=== PATIENT | female | born 1960 | race Caucasian/White ===

== ENCOUNTER → 2017-01-13 | Outpatient (CLI) | payer OTHER | LOC: WI 10:50 | PROVIDERS: ATTEND Family Medicine | DX: Z12.31 Encounter for screening mammogram for malignant neoplasm of breast (principal) | CPT/HCPCS: 77067; G0202 ==

== ENCOUNTER → 2017-03-11 | Outpatient (CLI) | payer OTHER ==
--- NOTE | 2017-03-11 09:16 | RADIOLOGY REPORT (SQ) ---
EXAM DESCRIPTION: SHOULDER LEFT 2 OR MORE VIEWS COMPLETED DATE/TIME: 03/11/2017 8:42 am REASON FOR STUDY: PAIN IN LEFT SHOULDER M25.512 PAIN IN LEFT SHOULDER COMPARISON: None. NUMBER OF VIEWS: Three views. TECHNIQUE: Internal rotation, external rotation, and Y view images acquired of the left shoulder. LIMITATIONS: None. FINDINGS: MINERALIZATION: Osteopenia BONES: No acute fracture or dislocation. No worrisome bone lesions. JOINTS: No glenohumeral joint dislocation. There is acromioclavicular joint bony spurring without AC joint separation. VISUALIZED LUNGS AND RIBS: Left upper lobe in the field of view hyperlucent from obstructive disease. Left upper ribs intact. SOFT TISSUES: No radiopaque foreign body. OTHER: No other significant finding. IMPRESSION: Acromioclavicular joint bony spurring. No acute fracture or malalignment. TECHNICAL DOCUMENTATION: JOB ID: [id number] [employer]- All Rights Reserved
== END ==
LOC: OD 08:13
PROVIDERS: ATTEND Family Medicine
DX: M85.812 Other specified disorders of bone density and structure, left shoulder (principal); M75.82 Other shoulder lesions, left shoulder; M25.512 Pain in left shoulder

== ENCOUNTER 2017-09-12 10:50 | Emergency (ER) | payer OTHER ==
--- NOTE | 2017-09-12 11:45 | EKG REPORT ---
SEVERITY:- BORDERLINE ECG - SINUS RHYTHM PROBABLE LEFT ATRIAL ABNORMALITY : Confirmed by: Aaron Ortiz 12-Sep-2017 11:45:21
[2017-09-12] MEDS ORDERED: ASPIRIN 81 MG TABLET, CHEWABLE PO ONE (11:48)
[2017-09-12 12:07] LABS: ABSOLUTE EOSINOPHILS # (AUTO) 0.2 10^3/uL (0.0-0.6); ABSOLUTE LYMPHOCYTES (AUTO) 1.4 10^3/uL (0.5-4.7); ABSOLUTE MONOCYTES (AUTO) 0.3 10^3/uL (0.1-1.4); ABSOLUTE NEUT (AUTO) 4.7 10^3/uL (1.7-8.2); BASOPHILS % (AUTO) 0.3 % (0-2); HEMATOCRIT 36.8 % (36.0-47.0); HEMOGLOBIN 12.5 g/dL (12.0-15.5); HGB HCT DIFFERENCE 0.7; LYMPHOCYTES % (AUTO) 21.2 % (13-45); MEAN CORPUSCULAR HEMOGLOBIN 29.8 pg (27.0-33.4); MEAN CORPUSCULAR VOLUME 88 fl (80-97); MONOCYTES % (AUTO) 5.2 % (3-13); RED CELL DISTRIBUTION WIDTH 13.7 % (11.5-14.0); SEGMENTED NEUTROPHILS % (AUTO) 70.3 % (42-78); WHITE BLOOD COUNT 6.6 10^3/uL (4.0-10.5)
[2017-09-12] MEDS ORDERED: ONDANSETRON HCL INJ/PF 4 MG/2 ML SDV IV ONE (12:19)
[2017-09-12] MEDS ORDERED: NORMAL SALINE 1000 ML 1,000 ML IV ONE (12:19)
[2017-09-12 12:28] LABS: ALANINE AMINOTRANSFERASE 37 U/L (9-52); ALBUMIN 4.6 g/dL (3.5-5.0); ALKALINE PHOSPHATASE 62 U/L (38-126); ANION GAP 13 (5-19); ASPARTATE AMINO TRANSFERASE 23 U/L (14-36); BILIRUBIN,DIRECT 0.5 mg/dL (0.0-0.4); BILIRUBIN,TOTAL 1.4 mg/dL (0.2-1.3); BLOOD UREA NITROGEN 15 mg/dL (7-20); CALCIUM 9.6 mg/dL (8.4-10.2); CARBON DIOXIDE 29 mmol/L (22-30); CHLORIDE 100 mmol/L (98-107); CREATINE KINASE 56 U/L (30-135); CREATININE RESULT 0.59 mg/dL (0.52-1.25); GLUCOSE 158 mg/dL (75-110); POTASSIUM 4.2 mmol/L (3.6-5.0); SODIUM 141.8 mmol/L (137-145); TOTAL PROTEIN 7.2 g/dL (6.3-8.2)
[2017-09-12 12:37] LABS: CREATINE KINASE MB 0.32 ng/mL (<4.55); TROPONIN I < 0.012 ng/mL
--- NOTE | 2017-09-12 13:32 | RADIOLOGY REPORT (SQ) ---
EXAM DESCRIPTION: CHEST SINGLE VIEW COMPLETED DATE/TIME: 09/12/2017 1:08 pm REASON FOR STUDY: cp COMPARISON: Chest films 10/24/2015 EXAM PARAMETERS: NUMBER OF VIEWS: One view. TECHNIQUE: Single frontal radiographic view of the chest acquired. RADIATION DOSE: NA LIMITATIONS: None. FINDINGS: LUNGS AND PLEURA: No opacities, masses or pneumothorax. No pleural effusion. MEDIASTINUM AND HILAR STRUCTURES: No masses. Contour normal. HEART AND VASCULAR STRUCTURES: Heart normal in size. Normal vasculature. BONES: No acute findings. HARDWARE: None in the chest. OTHER: No other significant finding. IMPRESSION: NO ACUTE RADIOGRAPHIC FINDING IN THE CHEST. TECHNICAL DOCUMENTATION: JOB ID: [id number] [employer]- All Rights Reserved
--- NOTE | 2017-09-12 15:12 | ER Document Report ---
ED General - General Chief Complaint: Chest Pain Stated Complaint: HEART PALPITATIONS, NAUSEA Time Seen by Provider: 09/12/17 11:48 TRAVEL OUTSIDE OF THE [place] IN LAST 30 DAYS: No - HPI Patient complains to provider of: Palpitations nausea Notes: Patient coming in for evaluation palpitations nausea. Patient states symptoms ongoing for the last few days. Patient states sick contact patient's coworker of symptoms on her work as influenza. Patient denies any recent travel denies any recent trauma. Patient is resting comfortably upon my evaluation denies specific chest pain states that she just feels intermittent palpitations. Denies any abdominal pain. Patient states similar symptoms when she had been diagnosed with gastritis in the past. Denies any trauma. - Related Data Allergies/Adverse Reactions: No Known Allergies Allergy (Verified 09/12/17 11:48) Past Medical History - Social History Smoking Status: Never Smoker Frequency of alcohol use: Occasional Drug Abuse: None Family History: None Patient has suicidal ideation: No Patient has homicidal ideation: No - Past Medical History Cardiac Medical History: Reports: Hx Coronary Artery Disease - high chol , Hx Hypercholesterolemia, Hx Hypertension Denies: Hx Heart Attack Pulmonary Medical History: Reports: Hx Asthma - albuterol - years ago Denies: Hx Bronchitis, Hx COPD, Hx Pneumonia Neurological Medical History: Denies: Hx Cerebrovascular Accident, Hx Seizures Endocrine Medical History: Reports: Hx Diabetes Mellitus Type 2 Renal/ Medical History: Denies: Hx Peritoneal Dialysis Musculoskeltal Medical History: Denies Hx Arthritis Psychiatric Medical History: Denies: Hx Depression Past Surgical History: Reports: Hx Hysterectomy - Immunizations Immunizations up to date: Yes Hx Diphtheria, Pertussis, Tetanus Vaccination: No - unknown Review of Systems - Review of Systems Constitutional: No symptoms reported EENT: No symptoms reported Cardiovascular: Palpitations Respiratory: No symptoms reported Gastrointestinal: Nausea, Vomiting Genitourinary: No symptoms reported Female Genitourinary: No symptoms reported Musculoskeletal: No symptoms reported Skin: No symptoms reported Hematologic/Lymphatic: No symptoms reported Neurological/Psychological: No symptoms reported -: Yes All other systems reviewed and negative Physical Exam - Vital signs Vitals: Temp Pulse Resp BP Pulse Ox 98.5 F 87 18 135/71 H 98 09/12/17 11:06 09/12/17 11:06 09/12/17 11:06 09/12/17 11:06 09/12/17 11:06 Interpretation: Normal - General General appearance: Appears well, Alert - HEENT Head: Normocephalic, Atraumatic Eyes: Normal Pupils: PERRL - Respiratory Respiratory status: No respiratory distress Chest status: Nontender Breath sounds: Normal Chest palpation: Normal - Cardiovascular Rhythm: Regular Heart sounds: Normal auscultation Murmur: No - Abdominal Inspection: Normal Distension: No distension Bowel sounds: Normal Tenderness: Nontender Organomegaly: No organomegaly - Back Back: Normal, Nontender - Extremities General upper extremity: Normal inspection, Nontender, Normal color, Normal ROM , Normal temperature General lower extremity: Normal inspection, Nontender, Normal color, Normal ROM , Normal temperature, Normal weight bearing. No: Richmond's sign - Neurological Neuro grossly intact: Yes Cognition: Normal Orientation: AAOx4 Anca Coma Scale Eye Opening: Spontaneous [place] Coma Scale Verbal: Oriented Anca Coma Scale Motor: Obeys Commands Anca Coma Scale Total: 15 Speech: Normal Motor strength normal: LUE, RUE, LLE, RLE Sensory: Normal - Psychological Associated symptoms: Normal affect, Normal mood - Skin Skin Temperature: Warm Skin Moisture: Dry Skin Color: Normal Course - Re-evaluation Re-evalutation: 09/12/17 15:40 The patient has palpitations as the patient's chest pain is not suggestive of pulmonary embolus, cardiac ischemia, aortic dissection, or other serious etiology. Given the extremely low risk of these diagnoses further testing and evaluation for these possibilities does not appear to be indicated at this time. The patient has been instructed to return if the symptoms worsen or change in any way. The patient presents with nausea without signs of peritonitis or other life-threatening or serious etiology. The patient appears stable for discharge and has been instructed to return immediately if the symptoms worsen in any way, or in 8-12hr if not improved for re-evaluation. The patient has been instructed to return if the symptoms worsen or change in any way. Patient with a few PVCs during her stay here no signs of any overt arrhythmias. Laboratory studies not showing signs of cardiac ischemia or any other critical issues. Patient will be discharged on follow-up primary care physician - Vital Signs Vital signs: Temp Pulse Resp BP Pulse Ox 98.5 F 76 14 134/68 H 97 09/12/17 11:06 09/12/17 12:04 09/12/17 15:00 09/12/17 15:00 09/12/17 15:00 - Laboratory Result Diagrams: 09/12/17 11:25 09/12/17 11:25 Laboratory results interpreted by me: 09/12/17 11:25 Glucose 158 H Total Bilirubin 1.4 H Direct Bilirubin 0.5 H Discharge - Discharge Clinical Impression: Palpitation Nausea & vomiting Qualifiers: Vomiting type: unspecified Vomiting Intractability: unspecified Qualified Code( s): R11.2 - Nausea with vomiting, unspecified Condition: Good Disposition: HOME, SELF-CARE Instructions: Nausea or Vomiting, Nonspecific ([facility]), Orthostatic Hypotension ( [facility]), Palpitations (Irregular or Rapid Heartrate) ([facility]), PVCs ([facility]) Additional Instructions: Your evaluation today reveals that you have orthostasis or that you have slight dehydration causing change in her vital signs whenever he goes from lying sitting and standing. Please drink more water to stay hydrated. Return to ER if symptoms worsen. You do have any occasional PVC which is a benign extra contraction of the bottom part of your heart. I do not see any signs of infection cardiac ischemia or significant pathology. Take nausea medication as prescribed return to ER symptoms worsen. Prescriptions: Ondansetron [Zofran Odt 4 mg Tablet] 1 tab PO Q4H PRN #20 tab.rapdis PRN Reason: For Nausea/Vomiting Prochlorperazine Maleate [Compazine] 5 mg PO Q6 #20 tablet Referrals: KELLY HOPPER DO [Primary Care Provider] - Follow up as needed
[2017-09-12 15:54] VITALS: BP 129/76
== END 2017-09-12 15:39 | disposition home or self-care (01) ==
LOC: ER 10:50
DX: R00.2 Palpitations (principal); R11.0 Nausea; R07.9 Chest pain, unspecified
CPT/HCPCS: 93005; 99285; 96361; 96374; 36415; 82553; 82550; 85025; 80053; 84484; 71010; 93010; J2405; J7030

== ENCOUNTER → 2017-10-07 | Outpatient (CLI) | payer OTHER ==
[2017-10-07 09:23] LABS: HEMATOCRIT 36.1 % (36.0-47.0); HEMOGLOBIN 12.1 g/dL (12.0-15.5); MEAN CORPUSCULAR HEMOGLOBIN 29.1 pg (27.0-33.4); MEAN CORPUSCULAR HGB CONC 33.4 g/dL (32.0-36.0); MEAN CORPUSCULAR VOLUME 87 fl (80-97); PLATELET COUNT 304 10^3/uL (150-450); RED BLOOD COUNT 4.14 10^6/uL (3.72-5.28); RED CELL DISTRIBUTION WIDTH 13.7 % (11.5-14.0); WHITE BLOOD COUNT 6.7 10^3/uL (4.0-10.5)
[2017-10-07 09:46] LABS: ALANINE AMINOTRANSFERASE 30 U/L (9-52); ALBUMIN 4.6 g/dL (3.5-5.0); ALKALINE PHOSPHATASE 59 U/L (38-126); ANION GAP 12 (5-19); ASPARTATE AMINO TRANSFERASE 20 U/L (14-36); BILIRUBIN,DIRECT 0.3 mg/dL (0.0-0.4); BILIRUBIN,TOTAL 1.1 mg/dL (0.2-1.3); BLOOD UREA NITROGEN 14 mg/dL (7-20); CALCIUM 10.4 mg/dL (8.4-10.2); CARBON DIOXIDE 30 mmol/L (22-30); CHLORIDE 102 mmol/L (98-107); CHOLESTEROL 153.56 mg/dL (0-200); GLUCOSE 117 mg/dL (75-110); MAGNESIUM 1.6 mg/dL (1.6-2.3); POTASSIUM 4.9 mmol/L (3.6-5.0); SODIUM 143.7 mmol/L (137-145); TOTAL PROTEIN 6.9 g/dL (6.3-8.2); TRIGLYCERIDES 68 mg/dL (<150)
[2017-10-07 09:57] LABS: DIRECT LDL 61 mg/dL (<100)
== END ==
LOC: OD 08:05
PROVIDERS: ATTEND Internal Medicine Cardiovascular Disease
DX: E11.9 Type 2 diabetes mellitus without complications (principal); R00.2 Palpitations; E78.00 Pure hypercholesterolemia, unspecified; Z79.899 Other long term (current) drug therapy
CPT/HCPCS: 36415; 80048; 80061; 80076; 83036; 83735; 84443; 85027

== ENCOUNTER 2017-12-16 08:57 | Observation (INO) | payer OTHER ==
--- NOTE | 2017-12-16 09:10 | EKG REPORT ---
SEVERITY:- NORMAL ECG - SINUS RHYTHM : Confirmed by: Aaron Ortiz 16-Dec-2017 09:09:52
[2017-12-16] MEDS ORDERED: ASPIRIN 81 MG TABLET, CHEWABLE PO ONE ×2 (09:15→09:22)
--- NOTE | 2017-12-16 09:25 | ER Document Report ---
ED Medical Screen (RME) - General Chief Complaint: Chest Pain Stated Complaint: CHEST PAIN Time Seen by Provider: 12/16/17 09:14 Mode of Arrival: Ambulatory Information source: Patient Notes: 57 yr old female hx htn, hypercholesterolemia, diabetes, presents with twinging pain on the left side yesterday and now pain on the left chest. 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 A comprehensive ED assessment and evaluation of the patient, analysis of test results and completion of the medical decision making process will be conducted by additional ED providers. PHYSICAL EXAMINATION: GENERAL: Well-appearing, well-nourished and in no acute distress. HEAD: Atraumatic, normocephalic. EYES: Pupils equal round extraocular movements intact, conjunctiva are normal. ENT: Nares patent NECK: Normal range of motion LUNGS: No respiratory distress Musculoskeletal: Normal range of motion NEUROLOGICAL: Normal speech, normal gait. PSYCH: Normal mood, normal affect. SKIN: Warm, Dry, normal turgor, no rashes or lesions noted. TRAVEL OUTSIDE OF THE [place] IN LAST 30 DAYS: No - Related Data Allergies/Adverse Reactions: No Known Allergies Allergy (Verified 09/12/17 11:48) Past Medical History - Social History Chew tobacco use (# tins/day): No Frequency of alcohol use: Occasional Drug Abuse: None - Past Medical History Cardiac Medical History: Reports: Hx Coronary Artery Disease - high chol , Hx Hypercholesterolemia, Hx Hypertension Denies: Hx Heart Attack Pulmonary Medical History: Reports: Hx Asthma - albuterol - years ago Denies: Hx Bronchitis, Hx COPD, Hx Pneumonia Neurological Medical History: Denies: Hx Cerebrovascular Accident, Hx Seizures Endocrine Medical History: Reports: Hx Diabetes Mellitus Type 2 Renal/ Medical History: Denies: Hx Peritoneal Dialysis Musculoskeltal Medical History: Denies Hx Arthritis Psychiatric Medical History: Denies: Hx Depression Past Surgical History: Reports: Hx Hysterectomy - Immunizations Immunizations up to date: Yes Hx Diphtheria, Pertussis, Tetanus Vaccination: No - unknown Physical Exam - Vital signs Vitals: Temp Pulse Resp BP Pulse Ox 97.7 F 91 20 139/70 H 99 12/16/17 09:08 12/16/17 09:08 12/16/17 09:08 12/16/17 09:08 12/16/17 09:08 Course - Vital Signs Vital signs: Temp Pulse Resp BP Pulse Ox 97.7 F 91 20 139/70 H 99 12/16/17 09:08 12/16/17 09:08 12/16/17 09:10 12/16/17 09:08 12/16/17 09:08
[2017-12-16 09:37] LABS: ABSOLUTE EOSINOPHILS # (AUTO) 0.2 10^3/uL (0.0-0.6); ABSOLUTE LYMPHOCYTES (AUTO) 1.3 10^3/uL (0.5-4.7); ABSOLUTE MONOCYTES (AUTO) 0.4 10^3/uL (0.1-1.4); ABSOLUTE NEUT (AUTO) 6.6 10^3/uL (1.7-8.2); BASOPHILS % (AUTO) 0.4 % (0-2); EOSINOPHILS % (AUTO) 1.9 % (0-6); HEMATOCRIT 37.9 % (36.0-47.0); HEMOGLOBIN 12.7 g/dL (12.0-15.5); MEAN CORPUSCULAR HEMOGLOBIN 29.1 pg (27.0-33.4); MEAN CORPUSCULAR HGB CONC 33.5 g/dL (32.0-36.0); MEAN CORPUSCULAR VOLUME 87 fl (80-97); MONOCYTES % (AUTO) 4.3 % (3-13); PLATELET COUNT 278 10^3/uL (150-450); RED BLOOD COUNT 4.36 10^6/uL (3.72-5.28); SEGMENTED NEUTROPHILS % (AUTO) 78.4 % (42-78); TOTAL CELLS COUNTED % (AUTO) 100 %; WHITE BLOOD COUNT 8.4 10^3/uL (4.0-10.5)
--- NOTE | 2017-12-16 09:49 | ER Document Report ---
ED Cardiac - General Chief Complaint: Chest Pain Stated Complaint: CHEST PAIN Time Seen by Provider: 12/16/17 09:14 Mode of Arrival: Ambulatory Notes: 57-year-old female to emergency department chief complaint of chest pain. Pain is been present for about 4 months. 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 Was going to the sieve maker's office today for the chest pain and was sent here to be evaluated instead. Has had a recent treadmill stress test which was unremarkable. Labs unremarkable. EKG showed PVCs. States the chest pain came back yesterday on the left side of her chest felt like sharp pins and then developed some pain in the left side of her back with some nausea. Currently does not have any pain. Here recently she has had some shortness of breath. TRAVEL OUTSIDE OF THE [place] IN LAST 30 DAYS: No - HPI Patient complains to provider of: Chest pain Use of: denies: Alcohol, Amphetamines, Bath salts, Caffeine, Cocaine, Decongestants, Other Was the onset of pain: Gradual Quality of pain: Intermittent, Sharp Chest pain radiation location: Back Severity now: None Severity at worst: Mild Pain level currently: 0 Cardiac risk factors: None Associated symptoms: Nausea/vomiting - Related Data Allergies/Adverse Reactions: No Known Allergies Allergy (Verified 09/12/17 11:48) Past Medical History - General Information source: Patient - Social History Smoking Status: Former Smoker Cigarette use (# per day): No Chew tobacco use (# tins/day): No Frequency of alcohol use: Occasional Drug Abuse: None Lives with: Family Family History: None Patient has suicidal ideation: No Patient has homicidal ideation: No - Past Medical History Cardiac Medical History: Reports: Hx Coronary Artery Disease - high chol , Hx Hypercholesterolemia, Hx Hypertension Denies: Hx Heart Attack Pulmonary Medical History: Reports: Hx Asthma - albuterol - years ago Denies: Hx Bronchitis, Hx COPD, Hx Pneumonia Neurological Medical History: Denies: Hx Cerebrovascular Accident, Hx Seizures Endocrine Medical History: Reports: Hx Diabetes Mellitus Type 2 Renal/ Medical History: Denies: Hx Peritoneal Dialysis Musculoskeltal Medical History: Denies Hx Arthritis Psychiatric Medical History: Denies: Hx Depression Past Surgical History: Reports: Hx Hysterectomy - Immunizations Immunizations up to date: Yes Hx Diphtheria, Pertussis, Tetanus Vaccination: No - unknown Review of Systems - Review of Systems Constitutional: No symptoms reported. denies: Fever, Malaise, Weakness EENT: No symptoms reported. denies: Double vision, Nose pain, Difficulty swallowing, Mouth swelling, Vertigo Cardiovascular: No symptoms reported, Chest pain, Palpitations, Dyspnea. denies : Heart racing, Orthopnea, Dizziness, Lightheaded, Edema Respiratory: No symptoms reported, Short of breath. denies: Cough, Hurts to breathe, Wheezing Gastrointestinal: No symptoms reported, Nausea. denies: Abdominal pain, Diarrhea, Vomiting Genitourinary: No symptoms reported. denies: Dysuria, Discharge, Hematuria, Urgency Female Genitourinary: No symptoms reported Musculoskeletal: No symptoms reported, See HPI, Back pain. denies: Joint pain, Muscle stiffness, Neck pain, Deformity Skin: No symptoms reported. denies: Dryness, Lesions, Rash Hematologic/Lymphatic: No symptoms reported. denies: Anemia, Blood clots, Easy bleeding, Easy bruising Neurological/Psychological: No symptoms reported. denies: Depression, Weakness , Numbness Physical Exam - Vital signs Vitals: Temp Pulse Resp BP Pulse Ox 97.7 F 91 20 139/70 H 99 12/16/17 09:08 12/16/17 09:08 12/16/17 09:08 12/16/17 09:08 12/16/17 09:08 Interpretation: Normal - General General appearance: Appears well, Alert - HEENT Head: Normocephalic, Atraumatic Eyes: Normal Pupils: PERRL - Respiratory Respiratory status: No respiratory distress Chest status: Nontender Breath sounds: Normal Chest palpation: Normal - Cardiovascular Rhythm: Regular Heart sounds: Normal auscultation Murmur: No - Abdominal Inspection: Normal Distension: No distension Bowel sounds: Normal Tenderness: Nontender Organomegaly: No organomegaly - Back Back: Normal, Nontender - Extremities General upper extremity: Normal inspection, Nontender, Normal color, Normal ROM , Normal temperature General lower extremity: Normal inspection, Nontender, Normal color, Normal ROM , Normal temperature, Normal weight bearing. No: Richmond's sign - Neurological Neuro grossly intact: Yes Cognition: Normal Orientation: AAOx4 Anca Coma Scale Eye Opening: Spontaneous [place] Coma Scale Verbal: Oriented [place] Coma Scale Motor: Obeys Commands [place] Coma Scale Total: 15 Speech: Normal Motor strength normal: LUE, RUE, LLE, RLE Sensory: Normal - Psychological Associated symptoms: Normal affect, Normal mood - Skin Skin Temperature: Warm Skin Moisture: Dry Skin Color: Normal Course - Re-evaluation Re-evalutation: 12/16/17 13:06 First set of labs, chest x-ray, CT scan unremarkable. Uncomfortable discharging patient who is 57-year-old female with reportedly abnormal treadmill stress test. Consulted hospitalist. Will admit at this time . 12/16/17 13:07 - Vital Signs Vital signs: Temp Pulse Resp BP Pulse Ox 97.7 F 91 15 127/68 H 99 12/16/17 09:08 12/16/17 09:08 12/16/17 13:01 12/16/17 13:01 12/16/17 13:01 - Laboratory Result Diagrams: 12/16/17 09:24 12/16/17 09:24 Laboratory results interpreted by me: 12/16/17 12/16/17 09:24 09:24 Seg Neutrophils % 78.4 H Glucose 215 H Calcium 10.3 H - EKG Interpretation by Me EKG shows normal: Sinus rhythm, [place], Intervals, QRS Complexes, ST-T Waves Discharge - Discharge Clinical Impression: Chest pain Qualifiers: Chest pain type: unspecified Qualified Code(s): R07.9 - Chest pain, unspecified Condition: Good Disposition: ADMITTED OBSERVATION Admitting Provider: Hospitalist [facility] Admitted: Telemetry Referrals: KELLY HOPPER DO [Primary Care Provider] - Follow up as needed
--- NOTE | 2017-12-16 09:58 | RADIOLOGY REPORT (SQ) ---
EXAM DESCRIPTION: CHEST SINGLE VIEW COMPLETED DATE/TIME: 12/16/2017 9:50 am REASON FOR STUDY: chest pain COMPARISON: 10/24/2015 EXAM PARAMETERS: NUMBER OF VIEWS: One view. TECHNIQUE: Single frontal radiographic view of the chest acquired. RADIATION DOSE: NA LIMITATIONS: None. FINDINGS: LUNGS AND PLEURA: No opacities, masses or pneumothorax. No pleural effusion. MEDIASTINUM AND HILAR STRUCTURES: No masses. Contour normal. HEART AND VASCULAR STRUCTURES: Heart normal in size. Normal vasculature. BONES: No acute findings. HARDWARE: None in the chest. OTHER: No other significant finding. IMPRESSION: NO ACUTE RADIOGRAPHIC FINDING IN THE CHEST. TECHNICAL DOCUMENTATION: JOB ID: [id number] [employer]- All Rights Reserved Reading location - IP/workstation name: [email or web address]
[2017-12-16 09:59] LABS: ALANINE AMINOTRANSFERASE 30 U/L (9-52); ALBUMIN 4.6 g/dL (3.5-5.0); ALKALINE PHOSPHATASE 75 U/L (38-126); ANION GAP 17 (5-19); ASPARTATE AMINO TRANSFERASE 19 U/L (14-36); BILIRUBIN,DIRECT 0.2 mg/dL (0.0-0.4); BILIRUBIN,TOTAL 1.3 mg/dL (0.2-1.3); BLOOD UREA NITROGEN 14 mg/dL (7-20); CALCIUM 10.3 mg/dL (8.4-10.2); CARBON DIOXIDE 27 mmol/L (22-30); CHLORIDE 99 mmol/L (98-107); CREATINE KINASE 43 U/L (30-135); GLUCOSE 215 mg/dL (75-110); POTASSIUM 4.2 mmol/L (3.6-5.0)
[2017-12-16 10:15] LABS: CREATINE KINASE MB < 0.22 ng/mL (<4.55); TROPONIN I < 0.012 ng/mL
[2017-12-16] MEDS ORDERED: DIPHENHYDRAMINE HCL 50 MG/ML VIAL IV ONE (10:16)
--- NOTE | 2017-12-16 11:12 | RADIOLOGY REPORT (SQ) ---
EXAM DESCRIPTION: CTA CHEST COMPLETED DATE/TIME: 12/16/2017 10:49 am REASON FOR STUDY: cp, sob, COMPARISON: Chest x-ray 12/16/2017 TECHNIQUE: CT scan of the chest performed using helical scanning technique with dynamic intravenous contrast injection. Images reviewed with lung, soft tissue and bone windows. Reconstructed coronal and sagittal MPR images reviewed. Additional 3 dimensional post-processing performed to develop Maximal Intensity Projection images (NH P). All images stored on PACS. All CT scanners at this facility use dose modulation, iterative reconstruction, and/or weight based d osing when appropriate to reduce radiation dose to as low as reasonably achievable (ALARA). [facility]: Dose Right [facility]: CareDose [facility]: Dose Right [facility]: Teradose 4D [facility]: Histogenics CONTRAST TYPE AND DOSE: contrast/concentration: Isovue 370.00 mg/ml; Total Contrast Delivered: 77.0 ml; Total Saline Delivered: 80.0 ml Contrast bolus optimized for the pulmonary arteries. Not diagnostic for the aorta. RENAL FUNCTION: BUN 14 creatinine 0.6 RADIATION DOSE: CT Rad equipment meets quality standard of care and radiation dose reduction techniq ues were employed. CTDIvol: 18.5 - 24.8 mGy. DLP: 705 mGy-cm. . LIMITATIONS: None. FINDINGS: LUNGS AND PLEURA: No masses, infiltrates, pneumothorax. No pleural effusions, calcificati ons. AORTA AND GREAT VESSELS: No aneurysm. Contrast bolus not optimized for the aorta. HEART: No pericardial effusion. No significant coronary artery calcifications. PULMONARY ARTERIES: No emboli visualized in the main pulmonary arteries or the segmental branches. HILAR AND MEDIASTINAL STRUCTURES: No identified masses or abnormal nodes. HARDWARE: None in the chest. UPPER ABDOMEN: No significant findings. Limited exam. THYROID AND OTHER SOFT TISSUES: No masses. No adenopathy. BONES: No acute or significant finding. 3D MIPS: Confirm above findings. OTHER: No other significant finding. IMPRESSION: NORMAL CTA OF THE CHEST. NO PULMONARY EMBOLI. COMMENT: Quality ID # [id number]: Final reports with documentation of one or more dose reduction techniques (e.g., Automated exposure control, adjustment of the mA and/or kV according to patient size, use of iterative reconstruction technique) TECHNICAL DOCUMENTATION: JOB ID: [id number] [employer]- All Rights Reserved Reading location - IP/workstation name: [email or web address]
[2017-12-16] MEDS ORDERED: NITROGLYCERIN 0.4 MG/TAB 25 TAB/BOTTLE SL PRN (13:16)
[2017-12-16] MEDS ORDERED: DEXTROSE 40% GEL 15 GM TUBE PO PRN ×2 (13:16)
[2017-12-16] MEDS ORDERED: GLUCAGON,HUMAN RECOMB 1 MG INJ IM PRN (13:16)
[2017-12-16] MEDS ORDERED: INSULIN LISPRO 100 UNIT/ML 3 ML VIAL SUBCUT PRN (13:16)
[2017-12-16] MEDS ORDERED: DEXTROSE 50%-WATER 25 GM/50 ML DISP.SYRIN IV PRN ×2 (13:16)
[2017-12-16] MEDS ORDERED: SUCRALFATE 1 GM TABLET PO ONE (14:00)
[2017-12-16] MEDS ORDERED: LACTULOSE SYRUP 20 GM/30 ML UDCUP PO ONE (14:00)
[2017-12-16] MEDS ORDERED: FAMOTIDINE 20 MG TABLET PO ONE (14:00)
[2017-12-16 14:02] LABS: CREATINE KINASE MB < 0.22 ng/mL (<4.55); TROPONIN I < 0.012 ng/mL
[2017-12-16] MEDS: HEPARIN SOD (PORCINE) 5,000 UNIT/ML 1 ML SYRINGE SUBCUT SCH ×2 (15:08→21:23)
--- NOTE | 2017-12-16 16:00 | PDOC H&P ---
History of Present Illness Admission Date/PCP: 12/16/17 13:48 KELLY HOPPER DO Patient complains of: Chest pain History of Present Illness: ZEKE ANTONIO is a 57 year old female with a past medical history of diabetes, hypertension and dyslipidemia. 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 Pain is 2 out of 5 intensity nonradiating, waxing and waning without alleviating or exacerbating factors she is referred to the hospital emergency room for evaluation. Her initial workup is unremarkable including EKG and CTA of the chest she is referred to the hospitalist for evaluation. Patient denies new medications. She admits previous episodes which prompted her scheduled stress testing. Past Medical History Cardiac Medical History: Reports: Coronary Artery Disease - high chol , Hyperlipidema, Hypertension Denies: Myocardial Infarction Pulmonary Medical History: Reports: Asthma - albuterol - years ago Denies: Bronchitis, Chronic Obstructive Pulmonary Disease (COPD), Pneumonia Neurological Medical History: Denies: Seizures Endocrine Medical History: Reports: Diabetes Mellitus Type 2 Musculoskeltal Medical History: Denies: Arthritis Skin Medical History: Reports: None Psychiatric Medical History: Reports: None Denies: Depression Traumatic Medical History: Reports: None Hematology: Reports: None Denies: Anemia Infectious Medical History: Reports: None Past Surgical History Past Surgical History: Reports: Hysterectomy Social History Information Source: Patient Lives with: Family Smoking Status: Former Smoker Frequency of Alcohol Use: None Hx Recreational Drug Use: No Hx Prescription Drug Abuse: No - Advance Directive Resuscitation Status: Full Code Family History Family History: CAD, DM, Hypertension Parental Family History Reviewed: Yes Children Family History Reviewed: Yes Sibling(s) Family History Reviewed.: Yes Medication/Allergy Home Medications: Aspirin [Aspirin EC] 81 mg PO QHS 12/16/17 Atorvastatin Calcium [Lipitor 10 mg Tablet] 10 mg PO QHS 12/16/17 Liraglutide [Victoza 2-Michael] 1.2 mg SQ QHS 12/16/17 Lisinopril [Prinivil 10 mg Tablet] 10 mg PO DAILY 12/16/17 Metformin HCl [Glucophage] 1,000 mg PO BID 12/16/17 Saxagliptin HCl [Onglyza] 5 mg PO DAILY 12/16/17 Allergies/Adverse Reactions: No Known Allergies Allergy (Verified 09/12/17 11:48) Review of Systems Constitutional: ABSENT: chills, fever(s), headache(s), weight gain, weight loss Eyes: ABSENT: visual disturbances Ears: ABSENT: hearing changes Cardiovascular: ABSENT: chest pain, dyspnea on exertion, edema, orthropnea, palpitations Respiratory: ABSENT: cough, hemoptysis Gastrointestinal: PRESENT: constipation. ABSENT: abdominal pain, diarrhea, hematemesis, hematochezia, nausea, vomiting Genitourinary: ABSENT: dysuria, hematuria Musculoskeletal: ABSENT: joint swelling Integumentary: ABSENT: rash, wounds Neurological: ABSENT: abnormal gait, abnormal speech, confusion, dizziness, focal weakness, syncope Psychiatric: ABSENT: anxiety, depression, homidical ideation, suicidal ideation Endocrine: ABSENT: cold intolerance, heat intolerance, polydipsia, polyuria Hematologic/Lymphatic: ABSENT: easy bleeding, easy bruising Physical Exam Vital Signs: Temp Pulse Resp BP Pulse Ox 98.0 F 91 15 119/63 98 12/16/17 15:14 12/16/17 09:08 12/16/17 14:31 12/16/17 14:31 12/16/17 14:31 General appearance: PRESENT: no acute distress, well-developed, well-nourished Head exam: PRESENT: atraumatic, normocephalic Eye exam: PRESENT: conjunctiva pink, EOMI, PERRLA. ABSENT: scleral icterus Ear exam: PRESENT: normal external ear exam Mouth exam: PRESENT: moist, tongue midline Neck exam: ABSENT: carotid bruit, JVD, lymphadenopathy, thyromegaly Respiratory exam: PRESENT: clear to auscultation rosemary. ABSENT: rales, rhonchi, wheezes Cardiovascular exam: PRESENT: RRR. ABSENT: diastolic murmur, rubs, systolic murmur Pulses: PRESENT: normal dorsalis pedis pul Vascular exam: PRESENT: normal capillary refill GI/Abdominal exam: PRESENT: normal bowel sounds, soft. ABSENT: distended, guarding, mass, organolmegaly, rebound, tenderness Rectal exam: PRESENT: deferred Extremities exam: PRESENT: full ROM. ABSENT: calf tenderness, clubbing, pedal edema Neurological exam: PRESENT: alert, awake, oriented to person, oriented to place , oriented to time, oriented to situation, CN II-XII grossly intact. ABSENT: motor sensory deficit Psychiatric exam: PRESENT: appropriate affect, normal mood. ABSENT: homicidal ideation, suicidal ideation Skin exam: PRESENT: dry, intact, warm. ABSENT: cyanosis, rash Results Impressions: Chest X-Ray 12/16/17 09:15 IMPRESSION: NO ACUTE RADIOGRAPHIC FINDING IN THE CHEST. Chest/Abdomen CTA 12/16/17 10:07 IMPRESSION: NORMAL CTA OF THE CHEST. NO PULMONARY EMBOLI. Assessment & Plan - Diagnosis (1) Diabetes Is this a current diagnosis for this admission?: Yes Plan: Hold metformin, sliding scale Humalog insulin. Recent outpatient A1c in the mid sixes. (2) Constipation Is this a current diagnosis for this admission?: Yes Plan: Lactulose and Colace initiated. (3) Chest pain Qualifiers: Chest pain type: unspecified Qualified Code(s): R07.9 - Chest pain, unspecified Is this a current diagnosis for this admission?: Yes Plan: Atypical chest pain though the patient's pain is atypical there are multiple risk factors for coronary artery disease and subsequently will observe and evaluation of acute coronary syndrome versus coronary artery disease with anginal equivalents. Cardiac monitoring blood pressure Q6 hours ,TSH, lipid profile, serial cardiac enzymes and cardiac stress test - Time Time Spent: 30 to 50 Minutes
[2017-12-16] MEDS: DOCUSATE SODIUM 100 MG CAPSULE PO SCH (17:33)
[2017-12-16] MEDS: ATORVASTATIN CALCIUM 80 MG TABLET PO SCH (21:23)
[2017-12-16 22:39] LABS: CREATINE KINASE MB < 0.22 ng/mL (<4.55); TROPONIN I < 0.012 ng/mL
[2017-12-17] MEDS: HEPARIN SOD (PORCINE) 5,000 UNIT/ML 1 ML SYRINGE SUBCUT SCH ×3 (05:04→22:38)
[2017-12-17 05:38] LABS: CHOLESTEROL 146.67 mg/dL (0-200); CREATINE KINASE 39 U/L (30-135); TRIGLYCERIDES 156 mg/dL (<150)
[2017-12-17 05:42] LABS: CREATINE KINASE MB < 0.22 ng/mL (<4.55); TROPONIN I < 0.012 ng/mL
[2017-12-17 05:49] LABS: DIRECT LDL 55 mg/dL (<100); VLDL CHOLESTEROL 31.2 mg/dL (10-31)
[2017-12-17] MEDS ORDERED: MORPHINE SULFATE 10 MG/ML INJ IV PRN (08:56)
[2017-12-17] MEDS: DOCUSATE SODIUM 100 MG CAPSULE PO SCH ×2 (09:44→18:11)
[2017-12-17] MEDS: LISINOPRIL 10 MG TABLET PO SCH (09:44)
[2017-12-17] MEDS ORDERED: LORAZEPAM INJ 2 MG/1 ML VIAL IV PRN (10:35)
[2017-12-17] MEDS ORDERED: ALPRAZOLAM 0.5 MG TABLET PO PRN (10:44)
[2017-12-17] MEDS ORDERED: LIDOCAINE 2% VISCOUS SOLN 20 ML UDCUP PO ONE (11:30)
[2017-12-17] MEDS ORDERED: PANTOPRAZOLE SODIUM 40 MG VIAL IV ONE (11:30)
[2017-12-17] MEDS ORDERED: MAG HYDROX/AL HYDROX/SIMETH SUSP 30 ML UDCUP PO ONE (11:30)
--- NOTE | 2017-12-17 12:11 | PDOC CONSULTATION ---
Consultation Consult Date: 12/17/17 Attending physician:: MANE PEPE Consult reason:: Chest pain History of Present Illness Admission Date/PCP: 12/16/17 13:48 KELLY HOPPER DO Patient complains of: Chest pain History of Present Illness: ZEKE ANTONIO is a 57 year old female with a past medical history of diabetes, hypertension and dyslipidemia. 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 Pain is 2 out of 5 intensity nonradiating, waxing and waning without alleviating or exacerbating factors she is referred to the hospital emergency room for evaluation. Her initial workup is unremarkable including EKG and CTA of the chest she is referred to the hospitalist for evaluation. Patient denies new medications. She admits previous episodes which prompted her scheduled stress testing. Patient describes having had a stress test and echocardiogram at private maintenance superintendent office. She has been scheduled as an outpatient nuclear stress test. However because of chest pain, patient was advised to come to the hospital and was subsequently admitted. Patient denied any prior history of myocardial infarction, angina or congestive heart failure. Patient denied any history of blood clots in the legs are in the lungs. Patient denied any history of significant gastroesophageal reflux. Past Medical History Cardiac Medical History: Reports: Coronary Artery Disease, Hyperlipidema, Hypertension Denies: Myocardial Infarction Pulmonary Medical History: Reports: Asthma - albuterol - years ago Denies: Bronchitis, Chronic Obstructive Pulmonary Disease (COPD), Pneumonia Neurological Medical History: Denies: Seizures Endocrine Medical History: Reports: Diabetes Mellitus Type 2 Musculoskeltal Medical History: Denies: Arthritis Skin Medical History: Reports: None Psychiatric Medical History: Reports: None Denies: Depression Traumatic Medical History: Reports: None Hematology: Reports: None Denies: Anemia Infectious Medical History: Reports: None Past Surgical History Past Surgical History: Reports: Hysterectomy Social History Information Source: Patient Lives with: Family Smoking Status: Former Smoker Frequency of Alcohol Use: None Hx Recreational Drug Use: No Drugs: None Hx Prescription Drug Abuse: No - Advance Directive Resuscitation Status: Full Code Surrogate healthcare decision maker:: Patient's daughter is the surrogate decision-maker Family History Family History: CAD, DM, Hypertension Parental Family History Reviewed: Yes Children Family History Reviewed: Yes Sibling(s) Family History Reviewed.: Yes Medication/Allergy Home Medications: Aspirin [Aspirin EC] 81 mg PO QHS 12/16/17 Atorvastatin Calcium [Lipitor 10 mg Tablet] 10 mg PO QHS 12/16/17 Liraglutide [Victoza 2-Michael] 1.2 mg SQ QHS 12/16/17 Lisinopril [Prinivil 10 mg Tablet] 10 mg PO DAILY 12/16/17 Metformin HCl [Glucophage] 1,000 mg PO BID 12/16/17 Saxagliptin HCl [Onglyza] 5 mg PO DAILY 12/16/17 Allergies/Adverse Reactions: No Known Allergies Allergy (Verified 09/12/17 11:48) Review of Systems Review of Systems: Please see history of present illness and past medical history as wall. Constitutional: No fever or chills reported. Head : No recent chronic headaches, recent head injury. Eyes: No recent eye pain, diplopia, redness, discharge, acute visual changes. Ears: No recent chronic ear pain, acute hearing loss, ear discharge. Oral cavity: No recent ulcerations, bleeding, oral cavity discomfort. Neck: No recent acute neck pain reported. Hematologic: No recent easy bruising or bleeding or hematologic malignancy reported. Lymphatic: No recent lymphatic malignancy, chronic lymphadenopathy reported yet Cardiovascular system review: See history of present illness. Respiratory system review: No recent chronic cough, hemoptysis, blood clots in the lungs reported. Mild Shortness of breath on exertion Gastrointestinal system review: Negative for any recent acute or chronic abdominal pain, hematemesis, melena, recent change in bowel habits. Genitourinary system review: No recent acute or chronic hematuria, flank pain, UTI etc. reported. Skin system review: Negative for any recent abnormal bruising, no rash, no pruritus reported. Neurologic: No prior history of strokes, mini strokes, seizure disorder. Psychologic: No history of major psychosis or major depression reported. Musculoskeletal: Minor aches and pains reported. No acute joint swelling reported. Endocrine: No recent polyuria, polydipsia, recent heat or cold intolerance. Physical Exam Vital Signs: Temp Pulse Resp BP Pulse Ox 98.0 F 74 13 122/68 99 12/17/17 07:36 12/17/17 07:36 12/17/17 07:36 12/17/17 07:36 12/17/17 07:36 Intake & Output 12/16/17 12/17/17 12/18/17 06:59 06:59 06:59 Intake Total 441 Output Total 1150 Balance -709 Weight 90.4 kg Exam: GENERAL: well-nourished and in no acute distress. Alert and oriented x3 HEAD: Atraumatic, normocephalic. EYES: Pupils equal round and reactive to light, extraocular movements intact, sclera anicteric, conjunctiva are normal. ENT: TMs normal, nares patent, oropharynx clear without exudates. Moist mucous membranes. No oral ulcerations or bleeding gums noted NECK: supple without lymphadenopathy. Trachea is central. No cervical or axillary lymphadenopathy noted. Carotids are 2+, JVD WNL LUNGS: Respiration seems nonlabored, no significant accessory muscle action noted. Breath sounds clear to auscultation bilaterally and equal noted. No wheezes rales or rhonchi noted. No significant dullness noted on percussion. CHEST: Palpation of the chest wall shows no significant chest wall tenderness. No other significant abnormalities noted. HEART: [place] [employer]IP[employer], No PSH, 1/6 RUBIN aortic area, 1/6 menezes systolic murmur mitral area, no rubs, no gallops. ABDOMEN: Soft, no significant tenderness appreciated, normoactive bowel sounds. No guarding, no rebound. No rigidity noted . No masses appreciated. EXTREMITIES: Pedal pulses are 1-2+, no calf tenderness noted. No clubbing or cyanosis. Negative pedal edema noted NEUROLOGICAL: Focused neurological exam showed no significant neurologic deficit. Normal speech, no focal weakness appreciated. PSYCH: Normal mood, normal affect. Judgment and insight within normal limits. SKIN: No significant ecchymosis, skin is noted to be warm. MUSCULOSKELETAL EXAM: No significant acute joint swelling noted. Results Laboratory Results: 12/17/17 04:02 Triglycerides 156 H Cholesterol 146.67 LDL Cholesterol Direct 55 VLDL Cholesterol 31.2 H HDL Cholesterol 56 12/16/17 12/17/17 12/17/17 21:47 04:02 04:02 Creatine Kinase 39 CK-MB (CK-2) < 0.22 < 0.22 Troponin I < 0.012 < 0.012 EKG Comments: Sinus rhythm, no acute ST-T wave changes noted. EKG 2 reviewed. Impressions: Chest X-Ray 12/16/17 09:15 IMPRESSION: NO ACUTE RADIOGRAPHIC FINDING IN THE CHEST. Chest/Abdomen CTA 12/16/17 10:07 IMPRESSION: NORMAL CTA OF THE CHEST. NO PULMONARY EMBOLI. Assessment & Plan - Diagnosis (1) Chest pain Qualifiers: Chest pain type: unspecified Qualified Code(s): R07.9 - Chest pain, unspecified Is this a current diagnosis for this admission?: Yes (2) Diabetes Qualifiers: Diabetes mellitus type: type 2 Diabetes mellitus nursing home insulin use: unspecified nursing home insulin use status Diabetes mellitus complication status : without complication Qualified Code(s): E11.9 - Type 2 diabetes mellitus without complications Is this a current diagnosis for this admission?: Yes - Notes Notes: Chest pain: Patient has some typical and atypical features of chest pain. Cardiac enzymes so far has been negative. Electrocardiogram did not show any definitive ST segment changes. Multiple differential diagnoses exist in this patient. In descending order of probability this includes underlying coronary artery disease, gastroesophageal reflux, musculoskeletal pain, referred pain from elsewhere, anxiety panic disorder etc.Patient has significant cardiac risk factors, which indicates that there is a intermediate probability of chest discomfort coming from underlying CAD. Feel that it would need to be evaluated further. Discussed evaluation to assess this. In this regard risk benefits of nuclear stress test and other alternative processes were discussed in detail. The patient prefers to undergo nuclear stress test. The small risk of radiation , myocardial infarction, , cardiac arrhythmias, respiratory distress etc. were discussed. Patient understood the risks and gave informed consent. Nuclear stress test was therefore scheduled. Patient had a recent 2D echocardiogram. Will try to obtain those records. Would recommend twelve-lead EKGs for each episode of chest pain and also repeat cardiac enzymes approximately 4 hours after each episodes of chest pain. In the meantime recommend treating for an covering for other causes of chest pain such as reflux , anxiety panic disorder etc. CTA has ruled out other serious causes such as pulmonary embolism and aortic dissection. Diabetes: Recommend good control of blood sugar. However should avoid any hypoglycemia and hyperglycemia. Patient being expertly managed by primary care M.D/hospitalist Anxiety disorder: Patient seems to have that. Agree with Xanax therapy. Gastroesophageal reflux: Suspect this been present. Proton pump inhibitor to be used empirically. If we cannot resolve Patient chest pain and there are no other causes found, then patient ultimately will need to be sent out for heart catheterization. - Time Time Spent: 30 to 50 Minutes - CODE STATUS was discussed, patient remains full code. Surrogate decision-maker unchanged. Multiple medical problems were addressed. More than 50% of the time spent coordinating care, discussing management plans with involved caregivers. Management plans discussed with involved personnels. Medical decision making was of moderate to high complexity , patient's has multiple comorbidities. Medications reviewed and adjusted accordingly: Yes
[2017-12-17] MEDS ORDERED: CYCLOBENZAPRINE HCL 10 MG TABLET PO ONE (13:00)
[2017-12-17 14:00] LABS: CREATINE KINASE MB < 0.22 ng/mL (<4.55); TROPONIN I < 0.012 ng/mL
--- NOTE | 2017-12-17 16:49 | Progress Note ---
Provider Note Provider Note: The patient began complaining of left-sided chest pressure beginning at 1030 this morning, rating it 3/5. The chest pain is non-radiating, not reproducible with palpation, not exacerbated with deep inhalation. EKG showed normal sinus rhythm. The patient was given 3 sublingual nitro and 2 mg of morphine IV and her chest pressure was still 3/5. Cardiology notified. troponin > 0.012. Attempted to treat noncardiac chest pain. Maalox and viscous lidocaine for possible reflux, xanax for anxiety, and flexeril for muscular pain. The patient states she still has chest pressure, rating it 2/5. Recent outpatient cardiac workup started at Wire Cutter's office (Dr. Soria of [place], [place]). Records received for recent ECHO and stress test.
[2017-12-17] MEDS: LANSOPRAZOLE 30 MG TAB.RAP.DR PO SCH (18:11)
[2017-12-17] MEDS: ENOXAPARIN SODIUM INJ 100 MG/1 ML DISP.SYRIN SUBCUT SCH (18:11)
--- NOTE | 2017-12-17 18:26 | PDOC TRANSFER SUMMARY ---
General Admission Date/PCP: 12/16/17 13:48 PCP: KELLY HOPPER DO VOLCANOLOGY PROFESSOR: DR. AWA SOLOMON Admission Date: 12/16/17 Transfer Date: 12/17/17 - Accepting physician Dr. Camarillo Accepting Facility: [facility] Resuscitation Status: Full Code - Transfer Diagnosis (1) Unstable angina Is this a current diagnosis for this admission?: Yes Diagnosis Summary: Patient presented to her sports team marketing intern's office for scheduled Cardiolite stress test, however she was reporting left-sided chest pain associated with nausea and palpitations upon arrival to the doctor's office. She took 162mg aspirin and was sent to the emergency department for evaluation, which included an EKG, CTA, and cardiac enzymes. All of which were negative. EKG showed normal sinus rhythm, no evidence of acute infarction or ischemia. CTA was negative for pulmonary embolism, dissection, aneurysm, or other pathology. Troponin <0.012. The patient reported that her chest pain resolved while in the emergency department. Plan for stress test the following morning. This morning at 1030 the patient reported left-sided chest pressure. She states it is the same pain she experienced in her doctor's office. She did no appear to be in any distress, the patient was resting comfortably in bed on room air. Her vital signs were all stable. Stress test put on hold. Repeat EKG showed normal sinus rhythm, no evidence of acute infarction or ischemia. The patient was given 3 sublingual nitroglycerin tablets as well as 2 mg of morphine IV. Tumbler Drier Operator, Dr. Ortiz, was made aware. Troponin<0.012. Attempted to treat noncardiac causes of chest pain - Maalox and viscous lidocaine were given for possible reflux, Xanax for anxiety, Flexeril for muscle pain. Despite these therapies, the patient still reported chest pressure 2/5. Records obtained from patient's sports team marketing intern's office regarding a recent outpatient echocardiogram and treadmill stress test. ECHO revealed LVEF 60%, mild TR, and apical septal aneurysm. Treadmill stress test showed ST depression in leads 2,3,AVF, and V6. Given the atypical nature of this patient's chest pain and her multiple risk factors for acute coronary syndrome, plan to transfer patient to tertiary hospital for cardiac catheterization. (2) Diabetes Is this a current diagnosis for this admission?: Yes Diagnosis Summary: Patient reports history of diabetes. Currently taking metformin at home. Continue to hold metformin, manage blood glucose with sliding scale Humalog insulin. (3) Hyperlipemia Is this a current diagnosis for this admission?: Yes Diagnosis Summary: Patient reports history of hyperlipidemia. Given her (likely) history of coronary artery disease, and presenting with atypical chest pain - will maximize dose of atorvastatin for cardiac protection. (4) Hypertension Is this a current diagnosis for this admission?: Yes Diagnosis Summary: Patient has a history of hypertension, continue home dose lisinopril. PRN hydralazine IV for SBP > 160. The patient has remained relatively NORMOtensive. - Transfer Medications Home Medications: Aspirin [Aspirin EC] 81 mg PO QHS 12/16/17 Atorvastatin Calcium [Lipitor 10 mg Tablet] 10 mg PO QHS 12/16/17 Liraglutide [Victoza 2-Michael] 1.2 mg SQ QHS 12/16/17 Lisinopril [Prinivil 10 mg Tablet] 10 mg PO DAILY 12/16/17 Metformin HCl [Glucophage] 1,000 mg PO BID 12/16/17 Saxagliptin HCl [Onglyza] 5 mg PO DAILY 12/16/17 Transfer Medications: Current Medications Alprazolam (Xanax 0.5 Mg Tablet) 0.5 mg PO Q6HP PRN PRN Reason: ANXIETY Stop: 12/24/17 10:43 Last Admin: 12/17/17 11:26 Dose: 0.5 mg Atorvastatin Calcium (Lipitor 80 Mg Tablet) 80 mg PO QHS LILIA Stop: 01/15/18 21:59 Last Admin: 12/16/17 21:23 Dose: 80 mg Dextrose (Dextrose Inj 50% Syringe (25 Gm/50 Ml)) 12.5 gm IV PRN PRN; Protocol PRN Reason: FOR BG 50-69 IN ALERT PATIENT Stop: 01/15/18 13:15 Dextrose (Dextrose Inj 50% Syringe (25 Gm/50 Ml)) 25 gm IV PRN PRN; Protocol PRN Reason: PER PROTOCOL Stop: 01/15/18 13:15 Docusate Sodium (Colace 100 Mg Capsule) 100 mg PO BID LILIA Stop: 01/15/18 17:59 Last Admin: 12/17/17 09:44 Dose: 100 mg Enoxaparin Sodium (Lovenox Inj 100 Mg/1 Ml Disp.Syrin) 90 mg SUBCUT Q12A LILIA Stop: 01/16/18 17:59 Glucagon (Glucagen Inj 1 Mg Vial) 1 mg IM PRN PRN; Protocol PRN Reason: Evaluate for BG < 70 Stop: 01/15/18 13:15 Glucose (Glutose 40% Gel 15 Gm Tube) 15 gm PO PRN PRN; Protocol PRN Reason: FOR BG 50-69 IN ALERT PATIENT Stop: 01/15/18 13:15 Glucose (Glutose 40% Gel 15 Gm Tube) 30 gm PO PRN PRN; Protocol PRN Reason: FOR BG < 50 IN ALERT PATIENT Stop: 01/15/18 13:15 Heparin Sodium (Porcine) (Heparin Inj 5,000 Units/Ml 1 Ml Syringe) 5,000 unit SUBCUT Q8 LILIA Stop: 01/15/18 13:59 Last Admin: 12/17/17 13:53 Dose: 5,000 unit Insulin Human Lispro (Humalog Insulin 100 Unit/1 Ml 3 Ml Vial) 0 - 12 unit SUBCUT ACP PRN; Protocol PRN Reason: PER PROTOCOL Stop: 01/15/18 13:15 Lansoprazole (Prevacid 30 Mg Odt Tablet) 30 mg PO BID@0600,1700 [facility] Stop: 01/16/18 16:59 Lisinopril (Prinivil 10 Mg Tablet) 10 mg PO DAILY [facility] Stop: 01/16/18 09:59 Last Admin: 12/17/17 09:44 Dose: 10 mg Morphine Sulfate (Morphine 10 Mg/Ml Inj) 2 mg IV Q4HP PRN PRN Reason: FOR CHEST PAIN Stop: 12/24/17 08:55 Last Admin: 12/17/17 15:32 Dose: 2 mg Nitroglycerin (Nitrostat 0.4 Mg (1/150 Gr) Tabs 25/Bottle) 1 tab SL Q5MP PRN PRN Reason: FOR CHEST PAIN Last Admin: 12/17/17 09:07 Dose: 1 tab Sodium Chloride (Saline Flush 2.5 Ml Monoject Prefil Syrin) 2.5 ml IV Q8 LILIA Stop: 01/15/18 13:59 Last Admin: 12/17/17 13:56 Dose: 2.5 ml - Allergies Allergies/Adverse Reactions: No Known Allergies Allergy (Verified 09/12/17 11:48) - Diet/Activity Discharge Diet: As Tolerated Discharge Activity: Activity As Tolerated Hospital Course Hospital Course: Enedina Peres is a 57 y.o. female who [facility] sided [facility] pressure. She she was scheduled for a Cardiolite stress test and presented to her doctor's office with left-sided chest pressure associated with nausea and palpitations. The patient was undergoing cardiac workup for history of palpitations and cardiac arrhythmias (frequent PVCs). When the patient notified the staff at her doctor's office of her complaints, they sent her [facility]. The patient's chest pain resolved while she was in the emergency department. Her initial workup included an EKG, CTA, cardiac enzymes. All of which were negative. The patient was [facility] for chest pain observation. Please read above for the remainder of inpatient events. Physical Exam Vital Signs: Temp Pulse Resp BP Pulse Ox 98.0 F 90 13 122/68 99 12/17/17 07:36 12/17/17 14:00 12/17/17 07:36 12/17/17 07:36 12/17/17 07:36 Intake & Output 12/16/17 12/17/17 12/18/17 06:59 06:59 06:59 Intake Total 441 Output Total 1150 Balance -709 Weight 90.4 kg General appearance: PRESENT: no acute distress Head exam: PRESENT: atraumatic Eye exam: PRESENT: conjunctiva pink Mouth exam: PRESENT: moist Neck exam: PRESENT: full ROM Respiratory exam: PRESENT: clear to auscultation rosemary, symmetrical, unlabored. ABSENT: chest wall tenderness Cardiovascular exam: PRESENT: +S1, +S2 Pulses: PRESENT: normal radial pulses, normal dorsalis pedis pul Vascular exam: PRESENT: normal capillary refill GI/Abdominal exam: PRESENT: normal bowel sounds, soft Rectal exam: PRESENT: deferred Extremities exam: PRESENT: full ROM Musculoskeletal exam: PRESENT: full ROM Neurological exam: PRESENT: alert, awake, oriented to person, oriented to place , oriented to time, oriented to situation Psychiatric exam: PRESENT: appropriate affect Skin exam: PRESENT: normal color Results Laboratory Results: 12/17/17 04:02 Triglycerides 156 H Cholesterol 146.67 LDL Cholesterol Direct 55 VLDL Cholesterol 31.2 H HDL Cholesterol 56 12/16/17 12/17/17 12/17/17 21:47 04:02 04:02 Creatine Kinase 39 CK-MB (CK-2) < 0.22 < 0.22 Troponin I < 0.012 < 0.012 03/23/18 13:18 Creatine Kinase CK-MB (CK-2) < 0.22 Troponin I < 0.012 Impressions: Chest X-Ray 12/16/17 09:15 IMPRESSION: NO ACUTE RADIOGRAPHIC FINDING IN THE CHEST. Chest/Abdomen CTA 12/16/17 10:07 IMPRESSION: NORMAL CTA OF THE CHEST. NO PULMONARY EMBOLI. Status: Imported from PACS Plan Discharge Plan: Transfer to [facility] for cardiac catheterization. Accepting sports team marketing intern, Dr. Camarillo. Time Spent: Less than 30 Minutes
[2017-12-17] MEDS ORDERED: ATORVASTATIN CALCIUM 10 MG TABLET PO SCH (22:00)
--- NOTE | 2017-12-17 22:03 | EKG REPORT ---
SEVERITY:- BORDERLINE ECG - SINUS RHYTHM LVH BY VOLTAGE : Confirmed by: Aaron Ortiz 17-Dec-2017 22:02:32
--- NOTE | 2017-12-17 22:03 | EKG REPORT ---
SEVERITY:- BORDERLINE ECG - SINUS RHYTHM LVH BY VOLTAGE : Confirmed by: Aaron Ortiz 17-Dec-2017 22:02:22
[2017-12-17] MEDS: ATORVASTATIN CALCIUM 80 MG TABLET PO SCH (22:35)
[2017-12-18] MEDS: LANSOPRAZOLE 30 MG TAB.RAP.DR PO SCH (05:43)
[2017-12-18] MEDS: ENOXAPARIN SODIUM INJ 100 MG/1 ML DISP.SYRIN SUBCUT SCH (05:43)
[2017-12-18 08:55] VITALS: BP 131/66
--- NOTE | 2017-12-18 09:11 | EKG REPORT ---
SEVERITY:- NORMAL ECG - SINUS RHYTHM : Confirmed by: Aaron Ortiz 18-Dec-2017 09:10:25
[2017-12-18] MEDS: LISINOPRIL 10 MG TABLET PO SCH (09:26)
[2017-12-18] MEDS: DOCUSATE SODIUM 100 MG CAPSULE PO SCH (09:26)
--- NOTE | 2017-12-18 11:06 | PDOC PROGRESS REPORT ---
Subjective Progress Note for:: 12/18/17 Subjective:: Patient continues with intermittent chest discomfort however so far all EKGs and cardiac enzymes are negative. I am told by the hospitalist that patient had a EKG positive stress test. Patient prefers now to have heart catheterization for which she is being transferred to [facility]. Patient denying any PND, orthopnea. Patient denied any sustained palpitations, dizziness, syncope, near syncope. Patient denying any fever chills. Patient denying any other significant discomfort. Patient is maintaining sinus rhythm. Review of systems: Rest review of systems negative. Medications: Medications have been reviewed. Reason For Visit: CHEST PAIN OBESITY Physical Exam Vital Signs: Temp Pulse Resp BP Pulse Ox 98.8 F 82 12 131/66 H 100 12/18/17 08:02 12/18/17 08:02 12/18/17 08:02 12/18/17 08:02 12/18/17 08:02 Intake & Output 12/17/17 12/18/17 12/19/17 06:59 06:59 06:59 Intake Total 441 200 0 Output Total 1150 800 700 Balance -709 -600 -700 Weight 90.4 kg 90.8 kg Exam: GENERAL: well-nourished and in no acute distress. Alert and oriented x3 HEAD: Atraumatic, normocephalic. EYES: Pupils equal round and reactive to light, extraocular movements intact, sclera anicteric, conjunctiva are normal. ENT: TMs normal, nares patent, oropharynx clear without exudates. Moist mucous membranes. No oral ulcerations or bleeding gums noted NECK: supple without lymphadenopathy. Trachea is central. No cervical or axillary lymphadenopathy noted. Carotids are 2+, JVD WNL LUNGS: Respiration seems nonlabored, no significant accessory muscle action noted. Breath sounds clear to auscultation bilaterally and equal noted. No wheezes rales or rhonchi noted. No significant dullness noted on percussion. CHEST: Palpation of the chest wall shows no significant chest wall tenderness. No other significant abnormalities noted. HEART: [place] [employer] COORDINATOR, No PSH, 1/6 RUBIN aortic area, 1/6 menezes systolic murmur mitral area, no rubs, no gallops. ABDOMEN: Soft, no significant tenderness appreciated, normoactive bowel sounds. No guarding, no rebound. No rigidity noted . No masses appreciated. EXTREMITIES: Pedal pulses are 1-2+, no calf tenderness noted. No clubbing or cyanosis. Negative pedal edema noted NEUROLOGICAL: Focused neurological exam showed no significant neurologic deficit. Normal speech, no focal weakness appreciated. PSYCH: Normal mood, normal affect. Judgment and insight within normal limits. SKIN: No significant ecchymosis, skin is noted to be warm. MUSCULOSKELETAL EXAM: No significant acute joint swelling noted. Results Laboratory Results: 12/16/17 12/17/17 12/17/17 21:47 04:02 04:02 Creatine Kinase 39 CK-MB (CK-2) < 0.22 < 0.22 Troponin I < 0.012 < 0.012 12/17/17 13:18 Creatine Kinase CK-MB (CK-2) < 0.22 Troponin I < 0.012 EKG Comments: Twelve-lead EKG shows sinus rhythm, no acute ST-T wave changes noted. Impressions: Chest X-Ray 12/16/17 09:15 IMPRESSION: NO ACUTE RADIOGRAPHIC FINDING IN THE CHEST. Chest/Abdomen CTA 12/16/17 10:07 IMPRESSION: NORMAL CTA OF THE CHEST. NO PULMONARY EMBOLI. Assessment & Plan - Diagnosis (1) Chest pain Qualifiers: Chest pain type: unspecified Qualified Code(s): R07.9 - Chest pain, unspecified Is this a current diagnosis for this admission?: Yes (2) Diabetes Qualifiers: Diabetes mellitus type: type 2 Diabetes mellitus care home insulin use: unspecified technician terminal and repeater insulin use status Diabetes mellitus complication status : without complication Qualified Code(s): E11.9 - Type 2 diabetes mellitus without complications Is this a current diagnosis for this admission?: Yes (3) Anxiety disorder Qualifiers: Anxiety disorder type: unspecified anxiety disorder Qualified Code(s): F41.9 - Anxiety disorder, unspecified Is this a current diagnosis for this admission?: Yes (4) Gastroesophageal reflux Qualifiers: Esophagitis presence: esophagitis presence not specified Qualified Code(s) : K21.9 - Gastro-esophageal reflux disease without esophagitis Is this a current diagnosis for this admission?: Yes (5) Hyperlipemia Is this a current diagnosis for this admission?: Yes - Notes Notes: Chest pain: Patient keeps on having recurrent chest pain. However so far cardiac enzymes and EKGs have all been negative. Patient did have a 2D echocardiogram and also a stress test performed by another outboard motor assembler as an outpatient. It is reported to me that the stress test was positive for EKG changes and patient was also noted to have increased ventricular ectopy during stress test. Therefore I feel that given patient's age, risk factors especially diabetes, it is not unreasonable to transfer patient for heart catheterization at a different institution. Patient prefers to be transferred to [facility] and this was arranged by the hospitalist. Diabetes: Currently under satisfactory control. Anxiety disorder: Patient seems to have some underlying anxiety disorder. However patient denies this at this time. Patient was empirically placed on Xanax. Patient may benefit from SSRI agent especially if cardiac cath comes back negative. Anxiety panic disorder in differential diagnosis of chest pain in this lady. Gastroesophageal reflux: It is strongly suspected in this patient based on patient's obesity. Patient was empirically placed on proton pump inhibitor. If cardiac cath is negative, a endoscopy may need to be considered. Hyperlipidemia: Continue with current statin therapy. - Time Time with patient: 15-25 minutes - CODE STATUS was discussed, patient remains full code. Surrogate decision-maker unchanged. Multiple medical problems were addressed. More than 50% of the time spent coordinating care, discussing management plans with involved caregivers. Management plans discussed with involved personnels. Medical decision making was of moderate to high complexity , patient's has multiple comorbidities. Medications reviewed and adjusted accordingly: Yes
== END 2017-12-18 10:16 | disposition short-term general hospital (02) ==
LOC: ER 08:57 → EH 13:48 → 4S 16:51
PROVIDERS: ADMIT Emergency Medicine; ATTEND Emergency Medicine
DX: R07.9 Chest pain, unspecified (principal); K59.00 Constipation, unspecified; E11.9 Type 2 diabetes mellitus without complications; I10 Essential (primary) hypertension; E78.4 Other hyperlipidemia; F41.9 Anxiety disorder, unspecified; K21.9 Gastro-esophageal reflux disease without esophagitis; J45.909 Unspecified asthma, uncomplicated; Z87.891 Personal history of nicotine dependence; Z79.84 Long term (current) use of oral hypoglycemic drugs
CPT/HCPCS: 93005 ×3; 99285; 96374; 36415 ×2; 82553 ×2; 82962 ×3; 82550 ×2; 83690; 85025; 80053; 84484 ×2; 80061; 71045; 71275; 93010 ×3; G0378 ×4; J1644 ×2; J1200; J3490 ×4; J2270; S0164; J1650 ×2

== ENCOUNTER → 2018-05-24 | Outpatient (CLI) | payer OTHER ==
--- NOTE | 2018-05-25 15:45 | WOMENS IMAGING REPORT ---
EXAM DESCRIPTION: 3D SCREENING MAMMO BILAT COMPLETED DATE/TIME: 05/24/2018 3:10 pm REASON FOR STUDY: SCREENING MAMMO Z12.31 ENCNTR SCREEN MAMMOGRAM FOR MALIGNANT NEOPLASM OF NGOZI COMPARISON: 01/13/2017 TECHNIQUE: Standard craniocaudal and mediolateral oblique views of each breast recorded using digita l acquisition and breast tomosynthesis. LIMITATIONS: None. FINDINGS: No masses, calcifications or architectural distortion. No areas of suspicion. Read with the assistance of CAD. .[facility] - R2 [employer] Version 1.3 .[facility] Imaging - R2 Cenova Version 1.3 .[facility] Imaging - R2 Cenova Version 2.4 .[facility] - R2 Cenova Version 2.4 .[facility] - R2 [employer] Finishing Range Operator Version 9.2 IMPRESSION: NORMAL MAMMOGRAM. BIRADS 1. BREAST DENSITY: b. There are scattered areas of fibroglandular density. BIRAD: 1 NEGATIVE RECOMMENDATION: ROUTINE SCREENING Please continue yearly bilateral screening tomosynthesis in May 2018 COMMENT: The patient has been notified of the results by letter per SA requirements. Additional no tification policies are in place for contacting patient with suspicious or incomplete findings. Quality ID #[id number]: The [employer] recommends an annual screening mammogram for women aged 40 years or over. This facility utilizes a reminder system to ensure that all patients receive reminder letters, and/or direct phone calls for appointments. This includes reminders for routine scr eening mammograms, diagnostic mammograms, or other Breast Imaging Interventions when appropriate. Th is patient will be placed in the appropriate reminder system. The [employer] (ACR) has developed recommendations for screening MRI of the breast s in certain patient populations, to be used in conjunction with mammography. Breast MRI surveillanc e may be appropriate for women with more than 20% lifetime risk of developing breast cancer as deter mined by genetic testing, significant family history of the disease, or history of mantle radiation f or Hodgkins Disease. ACR Practice Guidelines 2008. DBT Technology DBT is a type of tomographic mammography. With conventional mammography, overlapping breast tissue ma y make lesions difficult to detect, even with good compression. DBT uses an x-ray tube that rotates a round the breast, taking images at different angles. These images are then combined to create thin sl ices of the breast that the radiologist can view as a 3D reconstruction. The [employer] unit can perform full-field digital mammograms (2D imaging); or DBT (3D imaging); or both, in a combination mode that quickly performs both the mammogram and the tomosynthesis scan while the breast is still compressed. PQRS 6045F: Fluoroscopic imaging is not utilized for breast tomosynthesis. TECHNICAL DOCUMENTATION: FINDING NUMBER: (1) ASSESSMENT: (1) JOB ID: [id number] [employer]- All Rights Reserved Reading location - IP/workstation name: [email or web address]-[email or web address]
== END ==
LOC: WI 14:47
PROVIDERS: ATTEND Nurse Practitioner
DX: Z12.31 Encounter for screening mammogram for malignant neoplasm of breast (principal)
CPT/HCPCS: 77063; 77067

== ENCOUNTER → 2019-06-30 | Outpatient (CLI) | payer BC, OTHER ==
--- NOTE | 2019-06-30 13:29 | WOMENS IMAGING REPORT ---
EXAM DESCRIPTION: 3D SCREENING MAMMO BILAT COMPLETED DATE/TIME: 06/30/2019 7:55 am REASON FOR STUDY: Z12.31 ENCOUNTER FOR SCREENING MAMMOGRAM FOR MALIGNANT NEOPLASM OF BREAST Z12.31 ENCNTR SCREEN MAMMOGRAM FOR MALIGNANT NEOPLASM OF NGOZI COMPARISON: 2017, 2016 EXAM PARAMETERS: Views: Standard craniocaudal and mediolateral oblique views of each breast recorded using digital acquisition and breast tomosynthesis. Read with the assistance of CAD. .[facility] - [employer] Health Program Specialist Version 9.2 LIMITATIONS: None. FINDINGS: No suspicious masses, suspicious calcifications or architectural distortion. No areas of c oncern. IMPRESSION: NEGATIVE MAMMOGRAM. BIRADS 1. BREAST DENSITY: a. The breasts are almost entirely fatty. BIRAD: ASSESSMENT: 1 NEGATIVE RECOMMENDATION: ROUTINE SCREENING Please continue yearly bilateral screening mammography/tomosynthesis in June 2020. COMMENT: The patient has been notified of the results by letter per MQSA requirements. Additional no tification policies are in place for contacting patient with suspicious or incomplete findings. Quality ID #[id number]: The [employer] recommends an annual screening mammogram for women aged 40 years or over. This facility utilizes a reminder system to ensure that all patients receive reminder letters, and/or direct phone calls for appointments. This includes reminders for routine scr eening mammograms, diagnostic mammograms, or other Breast Imaging Interventions when appropriate. Th is patient will be placed in the appropriate reminder system. TECHNICAL DOCUMENTATION: FINDING NUMBER: (1) ASSESSMENT: (1) JOB ID: [id number] [employer]- All Rights Reserved Reading location - IP/workstation name: [email or web address]
== END ==
LOC: WI 07:36
PROVIDERS: ATTEND Nurse Practitioner
DX: Z12.31 Encounter for screening mammogram for malignant neoplasm of breast (principal)
CPT/HCPCS: 77063; 77067